=== PATIENT | male | born 1940 | race Caucasian/White ===

== ENCOUNTER 2023-08-18 11:31 | Emergency (ER) | payer MEDICARE, BC ==
[~2023-08-18] VITALS: Ht 180.3 cm; Wt 90.7 kg
[2023-08-18] MEDS ORDERED: NEOMY/BACITRA/POLYMYXIN B OINT UD PACKET TP ONE (12:19)
[2023-08-18] MEDS: NEOMY/BACITRA/POLYMYXIN B OINT UD PACKET TP ONE (12:20)
[2023-08-18 12:23] VITALS: BP 136/69; TEMP 98.2; O2SAT 97
== END 2023-08-18 13:08 | disposition home or self-care (01) ==
LOC: ER 11:31
DX: S91.111A Laceration without foreign body of right great toe without damage to nail, initial encounter (principal); X58.XXXA Exposure to other specified factors, initial encounter; Y93.89 Activity, other specified; Y92.89 Other specified places as the place of occurrence of the external cause; Y99.8 Other external cause status
CPT/HCPCS: A4606; A4663